=== PATIENT | female | born 1945 | race Caucasian/White ===

== ENCOUNTER 2021-02-20 20:35 | Emergency (ER) | payer MEDICARE, OTHER, SELFPAY ==
[2021-02-20 20:36] VITALS: BP 154/91; PULSE 90; RESP 18; TEMP 36.2; O2SAT 98; BMI 36.6
--- NOTE | 2021-02-20 20:53 | RAD_ITS ---
STUDY: X-RAY - LEFT KNEE REASON FOR EXAM: Female, 75 years old. Fall TECHNIQUE: 3 view(s) of the knee. COMPARISON: None. FINDINGS: Normal visualized distal femur. Normal visualized proximal tibia and fibula. Normal proximal tibiofibular articulation. There is mild degenerative arthrosis of the medial femorotibial compartment. Normal lateral femorotibial compartment. Normal patellofemoral articulation. Minimal joint effusion. RAD/Knee 3 Views IMPRESSION: Degenerative arthrosis. Minimal joint effusion. Electronically Signed: Richie Stacy MD at 21:19 EDT , Service support ,
--- NOTE | 2021-02-20 22:19 | ED.VIS.LOWEX ---
HPI History of Present Illness Chief Complaint: Lower Extremity Injury Informant: patient Narrative Narrative: History is somewhat limited. Patient is understandably upset. She waited here about an hour and a half to be seen. However, x-rays were done. We had a critical patient with a significant stroke in another room that required dedicated bedside care. She states she tripped fell hit her left knee. No other injury. She is not on any anticoagulation. It is worse with weightbearing but she is able to. Is better with an ice pack. PFSH PFSH Allergy/AdvReac Type Severity Reaction Status Date / Time codeine AdvReac Vomiting Verified 02/20/21 20:39 Social History Smoking Status: Former smoker ROS ROS ED Eyes Eyes: Denies change in vision Gastrointestinal Gastrointestinal: Denies nausea or vomiting Musculoskeletal Musculoskeletal: Reports arthralgias Integumentary Reports Abrasions Neurologic Neurologic: Denies paresthesias Hematologic/Lymphatic Hematologic/Lymphatic: Denies easy bleeding or easy bruising EXAM Physical Exam Const Vital Signs: 02/20/21 20:36 Temperature 97.2 F L Temperature Source Temporal Pulse Rate 90 Respiratory Rate 18 Blood Pressure 154/91 H Blood Pressure Mean 112 Pulse Ox 98 Oxygen Delivery Method Room Air Positive well nourished and well developed General Appearance ED: well developed HEENT normocephalic and atraumatic Resp normal respiratory effort Extremity Extremity Narrative: Exam reveals a slight contusion/abrasion to the left tibial tuberosity area. No effusion. Range of motion is good. Knee is stable. No tenderness lower in the leg or up higher near the hip. She is able to bear weight. Neuro Sensorium / Orientation: alert Psych mental status grossly normal Skin Trauma: abrasion MDM MDM MDM Narrative Medical decision making narrative: Three-view x-ray of the left knee looked at by me and read by radiology shows no sign of acute fracture. Patient states she did not want a prescription. She will go home and use Motrin and ice. She wanted to leave now. Radiography Diagnostic Testing: Radiology Impression Knee X-Ray 02/20/21 20:53 IMPRESSION: Degenerative arthrosis. Minimal joint effusion. Electronically Signed: Richie Stacy MD at 21:19 EDT , Service support , Discharge Plan Triage Chief Complaint: Lower Extremity Injury ED Provider: Gregor Reyna Dx/Rx/DC Orders Clinical Impression: Fall from slip, trip, or stumble, Contusion of knee, left Instructions: Bone Contusion Primary Care Provider: NOT,DEFINED Referrals: Micaela Rajan MD [STAFF PHYSICIAN] - 3-5 Days if not improving NOT,DEFINED [Primary Care Provider] - Disposition Disposition: Home, Self Care
--- NOTE | 2021-02-20 22:27 | ED.RN ---
Pt approached triage desk stating she wants to leave. Pt is very upset stating she has not been checked on since the dr saw her but then states the doctor gave her her xray results. This RN told her registration still needs to see her and that her discharge instructions were printed and that it would only be a few minutes for a nurse to get them for her. Pt is very upset that she only got an ice pack Emotional support provided, pt was asked to go back to her room so i could send a nurse and registration to her but patient refused. Education provided that the nurses and doctors are very busy with 3 very critical patients, pt states that is no excuse Pt refused to wait for discharge instructions. Pt did wait for registration out at the triage desk. Pt then walked out of department, pt offered wheelchair as she was limping but patient refused.
--- NOTE | 2021-02-20 22:35 | ED.RN ---
Pt now yelling at the registered mail clerk in the waiting because her phone number and address were old and not corrected yet. the loss claim clerk was trying to explain what she was doing, patient refusing to answer questions that didn't pertain to billing for my visit Pt then upset that the loss claim clerk couldn't print something off for her for proof of registration. pt kept asking for a receipt, but no payment was collected from patient therefore no receipt could be given.
== END 2021-02-20 23:16 | disposition home or self-care (01) ==
LOC: ED 22:50
PROVIDERS: Emergency Provider Emergency Medicine
DX: S80.02XA Contusion of left knee, initial encounter (principal); W01.0XXA Fall on same level from slipping, tripping and stumbling without subsequent striking against object, initial encounter; Z87.891 Personal history of nicotine dependence
CPT/HCPCS: 73562; 99282

== ENCOUNTER 2021-03-27 16:36 | Emergency (ER) | payer MEDICARE, OTHER, SELFPAY ==
[2021-03-27 16:36] VITALS: BP 142/80; PULSE 109; RESP 18; TEMP 36.5; O2SAT 94; BMI 36.3
--- NOTE | 2021-03-27 17:43 | EDS_ITS ---
HPI History of Present Illness Chief Complaint: Diarrhea Narrative Narrative: Patient presenting with some mild nausea and diarrhea since last evening. She states that he is holding down food and fluid. She had a couple episodes of diarrhea today. Patient has concern because her had COVID- 19 and developed diarrhea and [facility] and [facility]. She wants to be tested for COVID-19. She denies respiratory complaints, fevers, chills, myalgias, change in taste or smell. Patient is fully vaccinated against COVID-19. [facility] Medical History Diabetes GERD (gastroesophageal reflux disease) Home Medications metformin 500 mg PO BID 03/27/21 [History Last Taken Unknown] Allergy/AdvReac Type Severity Reaction Status Date / Time codeine AdvReac Vomiting Verified 03/27/21 16:38 Social History Smoking Status: Former smoker ROS ROS ED Constitutional Constitutional ED: Denies chills or fever(s) Eyes Eyes: Denies blurry vision or diplopia ENT ENT ED: Denies rhinorrhea or sore throat Cardiovascular Cardiovascular: Denies chest pain or palpitations Respiratory/Chest Respiratory/Chest: Denies cough, dyspnea or sputum Gastrointestinal Gastrointestinal: Reports diarrhea and nausea; Denies abdominal pain, constipation, melena or vomiting Genitourinary Genitourinary ED: Denies dysuria or hematuria Musculoskeletal Musculoskeletal: Denies arthralgias, back pain, myalgias or neck pain Integumentary Denies Abrasions or rash Neurologic Neurologic: Denies headache(s) or paresthesias EXAM Physical Exam Const Vital Signs: 03/27/21 16:36 Temperature 97.7 F L Temperature Source Temporal Pulse Rate 109 H Respiratory Rate 18 Blood Pressure 142/80 H Blood Pressure Mean 100 Pulse Ox 94 Oxygen Delivery Method Room Air Positive well nourished General Appearance ED: NAD HEENT Reports moist mucous membranes Negative for trauma Eyes PERRL and EOMs intact bilaterally Resp normal respiratory effort and clear to auscultation bilaterally Cardio regular rate and regular rhythm GI normal to inspection, nondistended, normoactive bowel sounds Extremity normal to inspection General Extremety ED: Negative for edema or tenderness General Extremity: Negative for edema Neuro oriented x3 and CN's II-XII intact bilaterally Psych mental status grossly normal Skin no rashes or lesions noted and no wounds MDM MDM MDM Narrative Medical decision making narrative: Patient presenting desiring testing for COVID-19 secondary to diarrhea. She is offered nausea medication but declines this. She does not want any for home either. She states she does not have any abdominal pain, chest pain, shortness of breath or any other viral symptoms. She states that since her was diagnosed with COVID-19 and had diarrhea she wants to rule this out. Testing for COVID-19 today was negative. She is counseled to hydrate well and to return for worsening signs or symptoms. She will return as needed. Impression: 1. Nausea 2. Diarrhea Discharge Plan Triage Chief Complaint: Diarrhea ED Provider: Marvel Retana Dx/Rx/DC Orders Instructions: ED Diarrhea, Unknown Cause Prescriptions: No Action metformin 500 mg tablet extended release 24 hr 500 mg PO BID RF: 0 Primary Care Provider: Care Physician,No Primary Referrals: Care Physician,No Primary [Primary Care Provider] - Disposition Disposition: Home, Self Care
[2021-03-27 17:50] VITALS: RESP 18; O2SAT 97
== END 2021-03-27 17:53 | disposition home or self-care (01) ==
LOC: ED 17:46
PROVIDERS: Emergency Provider Student in an Organized Health Care Education/Training Program; PCP Internal Medicine
DX: R11.0 Nausea (principal); R19.7 Diarrhea, unspecified; E11.9 Type 2 diabetes mellitus without complications; Z79.84 Long term (current) use of oral hypoglycemic drugs; Z87.891 Personal history of nicotine dependence
CPT/HCPCS: 87426; 99282